=== PATIENT | male | born 1970 | race Caucasian/White ===

== ENCOUNTER 2016-03-04 06:31 | Inpatient (IN) ==
[2016-03-04] MEDS ORDERED: SODIUM CHLORIDE 0.9% 2,000 ML IV STA (07:03)
[2016-03-04] MEDS ORDERED: PANTOPRAZOLE 40 MG VIAL IV STA (07:03)
[2016-03-04] MEDS ORDERED: HYDROmorphone 2 MG/1 ML VIAL IV STA ×2 (07:04→08:03)
[2016-03-04] MEDS ORDERED: ONDANSETRON 4 MG/2 ML VIAL IV STA (07:04)
--- NOTE | 2016-03-04 07:05 | Emergency Department Note ---
Salvatore Croft Meredith, am scribing for, and in the presence of, Matthias Burt MD 07: 04. Carmel Croft James D, MD, personally performed the services described in this documentation, ascribed by Nicole Chase in my presence, and it is both accurate and complete . Arrival - Arrival Chief Complaint: Abdominal / Flank Pain Stated Complaint: blood in diarrhea m, back and abdomen pain ED Nursing Triage Note: C/O abd pain radiating into chest starting last night. Pt reports becoming diaphoretic and having diarrhea and noted bright red blood in stool. Mode of Arrival: Ambulatory Limitations: No Limitations Source: Patient, RN Notes Reviewed - History of Present Illness HPI Narrative: Pt is a 45 y/o white male reporting to the ED with c/o abdominal pain and lower back pain, onset last night at approximately 1900. He confirms associated diaphoresis and diarrhea with bright red blood. Pt states he had 4 episodes of diarrhea. Onset (ago): hour(s) Allergies/Adverse Reactions: Allergies Allergy/AdvReac Type Severity Reaction Status Date / Time No Known Allergies Allergy Verified 03/04/16 06:35 Home Medications: Home Medications Medication Instructions Recorded Confirmed Type Dextroamphetamine/Amphetamine 30 mg PO BID PRN 03/04/16 03/04/16 History [Adderall 30 mg Tablet] Morphine ER Tab [Ms Contin] 15 mg PO BID 03/04/16 03/04/16 History Nebivolol [Bystolic] 10 mg PO DAILY 03/04/16 03/04/16 History Oxycodone HCl/Acetaminophen 1 each PO TID 03/04/16 03/04/16 History [Percocet 10-325 mg Tablet] Review of System - Review of System 12 point system: reviewed and no additional remarkable complaints except as stated - Review of System Gastrointestinal: Present: as per HPI, abdominal pain, diarrhea (with bright red blood ) Musculoskeletal: Present: as per HPI, lower back pain Medical,Surgical,& Family Hx - Medical History Cardio: History of: Cardiovascular Problems (1st degree AV block) Musculoskeletal: History of: Musculoskeletal Problems (Chronic hip pain) - Social History Smoking Status: Never smoker Frequency of Alcohol Use: None Type of Drug Use: None Exam Physical Examination: GENERAL: This is a well-nourished, well-developed white male in no apparent distress. VITAL SIGNS: Temperature: 97.2, Pulse: 55, Respirations: 18, Blood pressure: 163 /93, O2 Saturation: 96 HEENT: Head is normocephalic and atraumatic. Pupils are equally round and reactive to light. Extraocular movement are intact. Oropharynx is benign with moist mucous membranes. NECK: Neck is soft and supple without tenderness. There are no masses. There is no lymphadenopathy. LUNGS: Lungs are clear to auscultation bilaterally. Chest rises symmetrically. There is no chest wall tenderness. CV: Heart is regular rate and rhythm without murmurs, rubs, or gallops. ABDOMEN: Abdomen is soft with tenderness in the left lower quadrant and suprapubic area. There are no abnormal masses palpated. There is no organomegaly. Bowel sounds are present and active. SKIN: Skin is clammy. No rash. EXTREMITIES: Patient has full range of motion without tenderness. There is no pedal edema. NEUROLOGIC: Awake, alert, and oriented x4. Cranial nerves II through XII are grossly intact. There are no motorsensory deficits. PSYCHIATRIC: Normal affect. Normal mood. Vital Signs: Vital Signs Temperature 97.2 F L 03/04/16 06:37 Pulse Rate 52 L 03/04/16 10:11 Respiratory Rate 18 03/04/16 09:48 Blood Pressure 134/104 03/04/16 09:19 O2 Sat by Pulse Oximetry 98 03/04/16 10:11 Course - Consultations Consultation #1: Discussed with hospitalist. Patient will be admitted to their service. Time: 10:13 Results - Labs CBC & BMP: 03/04/16 06:56 03/04/16 06:56 Lab Results: I have reviewed the patients labs Labs: Laboratory Tests 03/04/16 06:56 WBC 14.2 H RBC 6.81 H Hgb 16.7 Hct 52.6 H MCV 77.2 L MCH 25 L MCHC 31.7 L MPV 9.5 L Neut % (Auto) 83.5 H Lymph % (Auto) 10.3 L Neut # (Auto) 11.9 H Laboratory Tests 03/04/16 06:56 Urine pH 5.0 Ur Specific Pier[place] 1.034 Urine Protein 100 Urine Ketones 5 Urine Blood Small Urine Urobilinogen < 2.0 H Urine RBC 9 Urine WBC 4 Ur Squamous Epith Cells Occasional Urine Mucus Many - Diagnostic Findings Procedure: Abdominal x-ray: report reviewed by me (No evidence of acute process demonstrated. ) Disposition Clinical Impression: Hematochezia, Colitis Case discussed with: patient, patient's family Disposition: Still a Patient Condition: Stable Time of Disposition: 10:10
[2016-03-04] MEDS ORDERED: HYDROmorphone 2 MG/1 ML VIAL ONE (07:11)
[2016-03-04] MEDS ORDERED: PANTOPRAZOLE 40 MG VIAL IV ONE (07:11)
[2016-03-04] MEDS ORDERED: ONDANSETRON 4 MG/2 ML VIAL ONE (07:11)
[2016-03-04 07:14] LABS: Basophils % 0.2 % (0.0-0.8); Eosinophils # 0.1 10*3/uL (0.0-0.87); Eosinophils % 0.4 % (0.00-10.9); Hematocrit 52.6 VOL% (42.0-52.0); Hemoglobin 16.7 GM/DL (14.0-18.0); Immature Granulocytes % 0.3 %; Immature Granulocytes Absolute 0.04 #; Lymphocytes # 1.5 10*3/uL (1.4-4.0); Lymphocytes % 10.3 % (21.2-54.2); Mean Corpuscular HGB Conc 31.7 GM/DL (32-36); Mean Corpuscular Hemoglobin 25 PG (27-34); Mean Corpuscular Volume 77.2 FL (87-102); Mean Platelet Volume 9.5 FL (9.6-12.0); Monocytes # 0.8 10*3/uL (0.11-0.8); Monocytes % 5.3 % (1.7-12.7); Neutrophils # 11.9 10*3/uL (1.4-7.4); Neutrophils % 83.5 % (38.7-73.9); Platelet Count 245 10*3/uL (130-400); Red Blood Count 6.81 10*6/uL (3.8-5.5); Red Cell Distribution Width 15.9 % (9.3-17.3); White Blood Count 14.2 10*3/uL (4.5-13.71)
--- NOTE | 2016-03-04 07:24 | XRay Report ---
XR abdomen 2V Indication: Abdominal pain Comparison: 14 April 2010 Findings: No free fluid or free air seen. Multiple small flecks of ingested density overlie mostly the right side of the abdomen. Bowel gas pattern otherwise appears within normal limits. No abnormal calcifications are present. No other abnormality is identified. Impression: No evidence of acute process demonstrated PROCEDURE INTERPRETED AT [facility] DEPARTMENT OF RADIOLOGY Final Report Signed by: Dr. Esau Cota
[2016-03-04 07:27] LABS: Apearance,Urine Slightly Hazy (Clear); Bilirubin,Urine Negative (Negative); Blood, Urine Small mg/dL (Negative); Glucose,Urine (UA) Negative (Negative); Ketones,Urine 5 mg/dL (Negative); Mucus,Urine Many /LPF (Occasional); Nitrite,Urine Negative (Negative); Protein,Urine 100 MG/DL; RBC,Urine 9 /HPF (0-4); Squamous Epithelial Cell,Urine Occasional /HPF (0-10); Urine Specific Gravity 1.034 (1.001-1.035); Urine Urobilinogen < 2.0 EU/DL (0.2-1.0); WBC,Urine 4 /HPF (0-6)
[2016-03-04 07:29] LABS: Urine Color Dark Yellow (Yellow)
[2016-03-04 07:43] LABS: Albumin 4.2 G/DL (3.4-5.0); Bilirubin,Total 0.9 MG/DL (0.2-1.0); Calcium 9.3 MG/DL (8.5-10.1); Magnesium 2.3 MG/DL (1.8-2.4); Potassium 3.9 MMOL/L (3.5-5.1); Total Protein 8.1 G/DL (6.4-8.3)
--- NOTE | 2016-03-04 10:20 | CT Report ---
Exam: CT abdomen pelvis w con Date: 03/04/2016 7:51 AM Comparison: 01/28/2008 Indication: Left lower quadrant pain with blood in stool Technique: Sequential axial scans of the abdomen and pelvis were obtained following the ingestion of oral contrast and injection of 100 cc Omnipaque 350. Coronal and sagittal 2-D reconstructions were obtained. Total DLP: 1359.30 Findings: Atelectasis/scarring at the lung bases. Interval resolution of the large hepatic laceration. The liver is normal in size with no masses, dilated ducts or calcified gallstones. The spleen, pancreas adrenal glands, and have an unremarkable appearance. 8mm probable left midpole renal cyst with 2.7 mm left lower pole renal calculus. No ureteral calculi. The abdominal aorta is normal in size with no adjacent adenopathy. Small hiatal hernia with no dilatation of the small bowel. 28 mm fat-containing periumbilical hernia. Diffuse thickening of the wall of the colon from the distal transverse colon to the junction of the descending and sigmoid colon with minimal pericolonic soft tissue stranding. No evidence of focal diverticulitis, appendicitis, free air, or free fluid. The prostate measures 54 mm in diameter and indents the base of the urinary bladder. Small fat-containing bilateral inguinal hernias. Degenerative changes are noted with chronic appearing Schmorl's nodes. Old healed fractures of the right ilium/acetabulum with postoperative findings and interval right total hip replacement. Impression: Thickening of the wall of the colon from the distal transverse colon to the junction of the descending and sigmoid colon which can be seen with colitis, inflammatory bowel disease, etc. Small hiatal hernia with fat-containing periumbilical and bilateral inguinal hernias. Interval resolution of large hepatic laceration, 8mm probable left midpole renal cyst, and 2.7 mm left lower pole renal calculus. Old healed fractures of the right ilium/acetabulum with postoperative changes and interval right total hip replacement. PROCEDURE INTERPRETED AT [facility] DEPARTMENT OF RADIOLOGY Final Report Signed by: Dr. Lilian Robison
[2016-03-04] MEDS ORDERED: MORPHINE 2 MG/1 ML SYRINGE IV STA (10:34)
[2016-03-04] MEDS ORDERED: ONDANSETRON 4 MG/2 ML VIAL IV PRN (10:37)
[2016-03-04] MEDS ORDERED: MORPHINE 2 MG/1 ML SYRINGE IV PRN (10:37)
[2016-03-04] MEDS ORDERED: ACETAMINOPHEN 325 MG TABLET PO PRN (10:37)
[2016-03-04] MEDS ORDERED: ZALEPLON 5 MG CAPSULE PO PRN (10:37)
[2016-03-04] MEDS ORDERED: MORPHINE 2 MG/1 ML SYRINGE ONE (10:45)
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
[2016-03-04] MEDS ORDERED: NON-FORMULARY MEDICATION (Dextroamphetamine/Amphetamine [Adderall 30 Mg Tablet] 30 MG) PO PRN (12:05)
[2016-03-04] MEDS: SODIUM CHLORIDE 0.9% 1,000 ML IV SCH ×2 (12:23→20:09)
[2016-03-04] MEDS: metroNIDAZOLE INJ 500 MG in PREMIX 1 EACH IV SCH ×2 (12:23→23:22)
[2016-03-04] MEDS: CIPROFLOXACIN INJ 400 MG in PREMIX 1 EACH IV SCH (14:57)
[2016-03-04] MEDS: oxyCODONE/ACETAMINOPHEN 5-325 MG TABLET PO SCH ×2 (14:57→21:34)
[2016-03-04] MEDS: MORPHINE ER 15 MG TABLET PO SCH (21:35)
[2016-03-04 22:53] LABS: Hematocrit 44.1 VOL% (42.0-52.0); Hemoglobin 13.9 GM/DL (14.0-18.0)
[2016-03-05 06:01] LABS: Basophils % 0.3 % (0.0-0.8); Eosinophils # 0.1 10*3/uL (0.0-0.87); Eosinophils % 0.6 % (0.00-10.9); Hematocrit 45.1 VOL% (42.0-52.0); Hematocrit 45.7 VOL% (42.0-52.0); Hemoglobin 14.2 GM/DL (14.0-18.0); Hemoglobin 14.3 GM/DL (14.0-18.0); Immature Granulocytes % 0.3 %; Immature Granulocytes Absolute 0.04 #; Lymphocytes # 1.5 10*3/uL (1.4-4.0); Lymphocytes % 12.9 % (21.2-54.2); Mean Corpuscular HGB Conc 31.3 GM/DL (32-36); Mean Corpuscular Hemoglobin 25 PG (27-34); Mean Corpuscular Volume 78.4 FL (87-102); Mean Platelet Volume 9.8 FL (9.6-12.0); Monocytes # 0.6 10*3/uL (0.11-0.8); Monocytes % 5.4 % (1.7-12.7); Neutrophils # 9.5 10*3/uL (1.4-7.4); Neutrophils % 80.5 % (38.7-73.9); Platelet Count 188 10*3/uL (130-400); Red Blood Count 5.83 10*6/uL (3.8-5.5); Red Cell Distribution Width 15.2 % (9.3-17.3); White Blood Count 11.8 10*3/uL (4.5-13.71)
[2016-03-05 06:27] LABS: Albumin 3.3 G/DL (3.4-5.0); Bilirubin,Total 0.9 MG/DL (0.2-1.0); Calcium 8.3 MG/DL (8.5-10.1); Osmolality,Calculated 284.7 MOS/KG (273-304); Potassium 3.6 MMOL/L (3.5-5.1); Total Protein 6.1 G/DL (6.4-8.3)
[2016-03-05] MEDS: NEBIVOLOL 10 MG TABLET PO SCH (08:37)
[2016-03-05] MEDS: oxyCODONE/ACETAMINOPHEN 5-325 MG TABLET PO SCH ×3 (08:37→20:37)
[2016-03-05] MEDS: MORPHINE ER 15 MG TABLET PO SCH ×2 (08:37→20:38)
[2016-03-05] MEDS: metroNIDAZOLE INJ 500 MG in PREMIX 1 EACH IV SCH ×2 (10:40→23:03)
--- NOTE | 2016-03-05 11:28 | Gastrointestinal Progress Note ---
Assessment and Plan - Time spent with patient Time spent with patient: Greater than 30 minutes (1) Hematochezia Status: Acute Current Visit: Yes (2) Abnormal findings on diagnostic imaging of abdomen Status: Acute Current Visit: Yes (3) Other specified counseling Status: Acute Current Visit: Yes Exam (Progress Note) - Constitutional Vitals: Period Temp Pulse Resp BP Sys/Mack Pulse Ox Last 24 Hr 97.2 F-98.7 F 47-60 17-20 116-132/62-87 95-100 Results - Labs CBC & BMP: 03/05/16 05:31 03/05/16 05:31 Note Addendum: PLEASE NOTE -- automatic citation of patient information is unavoidable in this electronic note. I have made a reasonable effort to review the information cited , but it is not a part of my evaluation, impression, or recommendation unless specifically discussed in the dictated text that follows. As well, voice recognition software was used in the creation of this clinical note. Reasonable effort was made to identify and correct gross errors. Despite proofreading, errors in hybrid technologist may be present, including nonsense verbiage at times. If you encounter such an error, please contact me at [phone] for discussion and correction. -- Jasmin Chief complaint: hematochezia Subjective: the patient is a 45-year-old male seen for follow-up of hematochezia. The patient was admitted yesterday with complaint of sudden onset rectal bleeding. Evaluation revealed evidence of nonspecific colitis but no anemia. The patient is tolerating food at present. He had a bowel movement this morning which still contained blood, but subjectively less than previous. Medications: Tylenol, [place], ciprofloxacin, metronidazole, morphine, Bystolic, Adderall, Zofran, Percocet, sodium chloride infusion, [place] Review of Symptoms: 12 point review of symptoms was negative except as noted above Physical examination: Vital Signs: Current vital signs reviewed. General Appearance: well-appearing. Not acutely ill. Head: Normocephalic. Eyes: no scleral icterus. No scleral injection. No conjunctival pallor. Oral Cavity: Odor of breath was normal. No drooling was observed. Lips showed no abnormalities. Lungs: Respiration rhythm and depth was normal. Cardiovascular: Heart rate and rhythm were normal. Abdomen: abdomen was not distended. Abdominal auscultation revealed no abnormalities. Ascites was not discovered. Abdominal palpation revealed no tenderness and no hepatosplenomegaly. Musculoskeletal System: musculoskeletal system was grossly normal. Neurological: level of consciousness was normal. Speech was normal. No coordination/cerebellum abnormalities were noted. Skin: Gen. appearance was normal. Color and pigmentation were normal. No skin lesions were appreciated. Laboratory: what blood count 11.8, hemoglobin 14.3, hematocrit 45.7, platelets 188, sodium 145, BUN five, creatinine 0.8, ALT 29, AST 16, total bilirubin 0.9, albumin 3.3 Radiology: CT of the abdomen and pelvis from yesterday reveals thickening of the wall of the colon from distal transverse to the junction of the descending and sigmoid colon Impressions: 1. Hematochezia -- the differential diagnosis includes infectious/inflammatory enterocolitis, arteriovenous malformation, hemorrhoidal bleeding, colon polyps ( including cancer), and upper gastrointestinal bleeding. I recommend continued crystalloid resuscitation. I recommend serial hemoglobin and hematocrit monitoring with transfusion as indicated. I recommend intravenous proton pump inhibitor. Patient will need colonoscopy with timing dependent on clinical progress. If bleeding resumes, this will likely need to be done during this admission. If not, we could consider outpatient colonoscopy once he is adequately resuscitated and transfused. 2. Patient Counseling: Medical Management: Patient seen for greater than 30 minutes. Greater than 50% of this time was spent counseling regarding differential diagnosis, likely diagnosis,, diagnostic and therapeutic options, risks, benefits, and alternatives to procedures and medications, informed consent, and plan of care generally. Patient has expressed understanding and wishes to proceed. Recommendations: -- aggressive crystalloid resuscitation -- transfusion as indicated -- serial hemoglobin and hematocrit monitoring -- colonoscopy with timing dependent on clinical progress -- We will continue to follow with you.
[2016-03-05] MEDS: CIPROFLOXACIN INJ 400 MG in PREMIX 1 EACH IV SCH (12:09)
--- NOTE | 2016-03-05 15:24 | Hospitalist Progress Note ---
Assessment and Plan - Time spent with patient Time spent with patient: Greater than 30 minutes (1) Colitis Status: Acute Assessment and plan: WBC improved, symptoms improving with antibiotics. Continue current management. Current Visit: Yes (2) HTN (hypertension) Status: Acute Assessment and plan: Continue medications. Current Visit: Yes Hospitalist: Subjective Interval history: Reports a blood bowel movement, less blood than previous. Still with abdominal pain. No overnight events. Exam - Constitutional Vitals: Period Temp Pulse Resp BP Sys/Mack Pulse Ox Last 24 Hr 97.2 F-98.7 F 52-60 17-20 116-132/62-77 95-97 General appearance: no acute distress - Head Head exam: Present: normocephalic, atraumatic - Eye Eye exam: Present: EOMI Pupils: Present: TANJA - ENT ENT exam: Present: normal exam - Neck Neck exam: Present: normal inspection - Respiratory Respiratory exam: Present: clear to auscultation bilaterally. Absent: rhonchi, wheezes - Cardiovascular Cardiovascular exam: Present: regular rate and rhythm. Absent: gallop, rubs, systolic murmur - GI/Abdominal GI/Abdominal exam: Present: normal bowel sounds, tenderness, soft. Absent: distended, firm, guarding, rebound - Extremities Exam Extremities exam: Present: normal inspection. Absent: calf tenderness, edema Results - Labs CBC & BMP: 03/05/16 05:31 03/05/16 05:31 Lab Results: I have reviewed the past 24 hour labs Quality Measures - VTE Contraindication to Pharmacological VTE Prophylaxis: Active Bleeding
[2016-03-05] MEDS: SODIUM CHLORIDE 0.9% 1,000 ML IV SCH ×2 (15:26)
[2016-03-05 15:59] LABS: Hematocrit 46.4 VOL% (42.0-52.0); Hemoglobin 14.3 GM/DL (14.0-18.0)
[2016-03-06] MEDS: SODIUM CHLORIDE 0.9% 1,000 ML IV SCH ×3 (00:45→19:03)
[2016-03-06] MEDS: MORPHINE ER 15 MG TABLET PO SCH ×2 (08:13→20:39)
[2016-03-06] MEDS: oxyCODONE/ACETAMINOPHEN 5-325 MG TABLET PO SCH ×3 (08:13→20:38)
[2016-03-06] MEDS: NEBIVOLOL 10 MG TABLET PO SCH (08:13)
--- NOTE | 2016-03-06 10:28 | Gastrointestinal Progress Note ---
Assessment and Plan - Time spent with patient Time spent with patient: Less than 30 minutes (1) Hematochezia Status: Acute Current Visit: Yes (2) Abnormal findings on diagnostic imaging of abdomen Status: Acute Current Visit: Yes (3) Other specified counseling Status: Acute Current Visit: Yes Exam (Progress Note) - Constitutional Vitals: Period Temp Pulse Resp BP Sys/Mack Pulse Ox Last 24 Hr 97.4 F-97.9 F 58-80 18-24 119-139/56-77 95-100 Results - Labs CBC & BMP: 03/05/16 15:34 03/05/16 05:31 Note Addendum: PLEASE NOTE -- automatic citation of patient information is unavoidable in this electronic note. I have made a reasonable effort to review the information cited , but it is not a part of my evaluation, impression, or recommendation unless specifically discussed in the dictated text that follows. As well, voice recognition software was used in the creation of this clinical note. Reasonable effort was made to identify and correct gross errors. Despite proofreading, errors in processing tech may be present, including nonsense verbiage at times. If you encounter such an error, please contact me at for discussion and correction. -- Jasmin Chief complaint: hematochezia Subjective: the patient is a 45-year-old male seen for follow-up of hematochezia. The patient was admitted Monday with complaint of sudden onset rectal bleeding. Evaluation revealed evidence of nonspecific colitis but no anemia. The patient is tolerating food at present. His last bowel movement was recorded yesterday. Medications: Tylenol, [place], ciprofloxacin, metronidazole, morphine, Bystolic, Adderall, Zofran, Percocet, sodium chloride infusion, [place] Review of Symptoms: 12 point review of symptoms was negative except as noted above Physical examination: Vital Signs: Current vital signs reviewed. General Appearance: well-appearing. Not acutely ill. Head: Normocephalic. Eyes: no scleral icterus. No scleral injection. No conjunctival pallor. Oral Cavity: Odor of breath was normal. No drooling was observed. Lips showed no abnormalities. Lungs: Respiration rhythm and depth was normal. Cardiovascular: Heart rate and rhythm were normal. Abdomen: abdomen was not distended. Abdominal auscultation revealed no abnormalities. Ascites was not discovered. Abdominal palpation revealed no tenderness and no hepatosplenomegaly. Musculoskeletal System: musculoskeletal system was grossly normal. Neurological: level of consciousness was normal. Speech was normal. No coordination/cerebellum abnormalities were noted. Skin: Gen. appearance was normal. Color and pigmentation were normal. No skin lesions were appreciated. Laboratory: No new laboratories today Radiology: No new radiology today Impressions: 1. Hematochezia -- the differential diagnosis remains. I recommend continued hemoglobin and hematocrit monitoring with transfusion as indicated. I recommend intravenous proton pump inhibitor. Patient will need colonoscopy with timing dependent on clinical progress. If bleeding resumes, this will likely need to be done during this admission. If not, we could consider outpatient colonoscopy once he is adequately resuscitated and transfused. It would also be reasonable to start a regular diet. 2. Patient Counseling: Medical Management: Patient seen for greater than 30 minutes. Greater than 50% of this time was spent counseling regarding differential diagnosis, likely diagnosis,, diagnostic and therapeutic options, risks, benefits, and alternatives to procedures and medications, informed consent, and plan of care generally. Patient has expressed understanding and wishes to proceed. Recommendations: -- Continue to crystalloid resuscitation -- transfusion as indicated -- serial hemoglobin and hematocrit monitoring -- colonoscopy with timing dependent on clinical progress -- Regular diet as tolerated -- We will continue to follow with you.
--- NOTE | 2016-03-06 10:34 | Hospitalist Progress Note ---
Assessment and Plan - Time spent with patient Time spent with patient: Greater than 30 minutes (1) Colitis Status: Acute Assessment and plan: WBC improved, symptoms improving with antibiotics. Continue current management. Current Visit: Yes (2) HTN (hypertension) Status: Acute Assessment and plan: Continue medications. Current Visit: Yes Hospitalist: Subjective Interval history: No complaints, no overnight events. States he continues to have watery diarrhea , no blood however. Exam - Constitutional Vitals: Period Temp Pulse Resp BP Sys/Mack Pulse Ox Last 24 Hr 97.4 F-97.9 F 58-80 18-24 119-139/56-77 95-100 General appearance: no acute distress - Head Head exam: Present: normocephalic, atraumatic - Eye Eye exam: Present: EOMI Pupils: Present: TANJA - ENT ENT exam: Present: normal exam - Neck Neck exam: Present: normal inspection - Respiratory Respiratory exam: Present: clear to auscultation bilaterally. Absent: rhonchi, wheezes - Cardiovascular Cardiovascular exam: Present: regular rate and rhythm. Absent: gallop, rubs, systolic murmur - GI/Abdominal GI/Abdominal exam: Present: normal bowel sounds, soft. Absent: distended, firm , guarding, tenderness, rebound - Extremities Exam Extremities exam: Present: normal inspection. Absent: calf tenderness, edema Results - Labs CBC & BMP: 03/05/16 15:34 03/05/16 05:31 Lab Results: I have reviewed the past 24 hour labs Quality Measures - VTE Contraindication to Pharmacological VTE Prophylaxis: Active Bleeding
[2016-03-06] MEDS: metroNIDAZOLE INJ 500 MG in PREMIX 1 EACH IV SCH (10:36)
[2016-03-06] MEDS: CIPROFLOXACIN INJ 400 MG in PREMIX 1 EACH IV SCH (12:16)
[2016-03-07] MEDS: metroNIDAZOLE INJ 500 MG in PREMIX 1 EACH IV SCH ×2 (00:40→09:46)
[2016-03-07] MEDS: SODIUM CHLORIDE 0.9% 1,000 ML IV SCH (04:39)
[2016-03-07 06:14] LABS: Basophils % 0.4 % (0.0-0.8); Eosinophils # 0.3 10*3/uL (0.0-0.87); Eosinophils % 4.9 % (0.00-10.9); Hematocrit 41.9 VOL% (42.0-52.0); Immature Granulocytes % 0.2 %; Immature Granulocytes Absolute 0.01 #; Lymphocytes # 1.7 10*3/uL (1.4-4.0); Lymphocytes % 34.1 % (21.2-54.2); Mean Corpuscular Hemoglobin 24 PG (27-34); Mean Corpuscular Volume 77.9 FL (87-102); Mean Platelet Volume 10.2 FL (9.6-12.0); Monocytes # 0.3 10*3/uL (0.11-0.8); Monocytes % 6.7 % (1.7-12.7); Neutrophils # 2.7 10*3/uL (1.4-7.4); Neutrophils % 53.7 % (38.7-73.9); Platelet Count 191 10*3/uL (130-400); Red Blood Count 5.38 10*6/uL (3.8-5.5); White Blood Count 5.1 10*3/uL (4.5-13.71)
[2016-03-07 06:52] LABS: Calcium 8.3 MG/DL (8.5-10.1); Osmolality,Calculated 288.4 MOS/KG (273-304); Potassium 3.6 MMOL/L (3.5-5.1)
[2016-03-07] MEDS: NEBIVOLOL 10 MG TABLET PO SCH (08:40)
[2016-03-07] MEDS: oxyCODONE/ACETAMINOPHEN 5-325 MG TABLET PO SCH (08:40)
[2016-03-07] MEDS: MORPHINE ER 15 MG TABLET PO SCH (08:41)
[2016-03-07] MEDS: CIPROFLOXACIN INJ 400 MG in PREMIX 1 EACH IV SCH ×2 (08:42→11:07)
--- NOTE | 2016-03-07 11:03 | Discharge Summary ---
<Stella Kellogg - Last Filed: 03/07/16 10:53> Hospital Course - Hospital Course Hospital Course: Mr. Tariq was admitted with Colitis on 03/04/16. He was treated with IVF's, GI consult, clear liquids, cipro and flagyl. He has a hx of HTN. Stool cx's showed many WBC's, no enteric pathogens and no c diff. His H/H's were stable and he did not require blood transfusion. Dr. Karimi was consulted for hematochezia. Presentation was suggestive of ischemic colitis, but infectious colitis was also considered. His bleeding subsided and his symptoms improved with IV abx. He will be discharged home today on appropriate medications and follow up. - Time spent with patient Time with patient DS: Greater than 30 minutes (due to plan, doc and med rec.) Diagnosis - Discharge Diagnosis (1) Colitis Status: Acute (2) HTN (hypertension) Status: Acute (3) Hematochezia Status: Acute Discharge Plan - Discharge Data Disposition: Disch To Home/Self Care - Discharge Medications New Ciprofloxacin Tab [Cipro Tab] 500 mg PO BID #14 tablet metroNIDAZOLE TAB [Flagyl Cap/Tab] 500 mg PO TID #21 tablet Continue Oxycodone HCl/Acetaminophen [Percocet 10-325 mg Tablet] 1 each PO QID Morphine ER Tab [Ms Contin] 15 mg PO BID Nebivolol [Bystolic] 10 mg PO DAILY Dextroamphetamine/Amphetamine [Adderall 30 mg Tablet] 30 mg PO BID PRN PRN Reason: Restlessness - Follow Up or Referral Follow Up: Cyrus Karimi MD [Physician] - 2 Weeks - Forms/Instructions Exam - Constitutional Vitals: Period Temp Pulse Resp BP Sys/Mack Pulse Ox Last 24 Hr 97.1 F-98.1 F 68-94 17-20 117-149/57-83 96-99 Discharge Results Labs on day of discharge: Labs from last 24 hours 03/07/16 03/07/16 05:25 05:25 WBC 5.1 D RBC 5.38 Hgb 13.0 L Hct 41.9 L MCV 77.9 L MCH 24 L MCHC 31.0 L RDW 15.0 Plt Count 191 MPV 10.2 Neut % (Auto) 53.7 Lymph % (Auto) 34.1 [place] % (Auto) 6.7 Eos % (Auto) 4.9 Baso % (Auto) 0.4 Neut # (Auto) 2.7 Lymph # (Auto) 1.7 [place] # (Auto) 0.3 Eos # (Auto) 0.3 Baso # (Auto) 0.0 Immature Gran % 0.2 Nucleated RBC % 0.0 Immature Gran # 0.01 Nucleated RBCs # 0.00 Sodium 147 H Potassium 3.6 Chloride 112 H Carbon Dioxide 25 Anion Gap 13.6 BUN 4 L Creatinine 0.70 GFR Calculation 140 BUN/Creatinine Ratio 5.00 L Glucose 93 Calculated Osmolality 288.4 Calcium 8.3 L DS: Provider Date of admission: 03/04/16 10:20 Primary care physician: . No PCP Attending physician on admission: Lala Gomez MD Consults: 03/04/16 10:43 Consult to Physician [CONS] Routine Comment: colitis, bloody stools Consulting Provider: Cyrus Karimi 03/04/16 10:48 Consult to Pharmacy [CONS] Routine Reason for Pharmacy Consult: Adjust Meds Renal Funct Discharging clinician: Stella Kellogg NP Expected date of discharge: 03/07/16 <Lala Gomez - Last Filed: 03/07/16 11:14> Hospital Course - Hospital Course Hospital Course: I have seen and examined the patient and I agree with the discharge plan as outlined by KI Kellogg. Will discharge the patient home for completion of antibiotics and follow up with GI for colonoscopy. Diagnosis - Discharge Diagnosis (1) Colitis Status: Acute (2) HTN (hypertension) Status: Acute Discharge Plan - Discharge Data Condition at Discharge: Stable Discharge Diet: advance to your usual diet Activity: resume usual activities as tolerated Exam - Constitutional General appearance: normal weight, no acute distress - Head Head exam: Present: normal inspection, normocephalic, atraumatic - Eye Eye exam: Present: EOMI Pupils: Present: TANJA - ENT ENT exam: Present: normal exam - Neck Neck exam: Present: normal inspection - Respiratory Respiratory exam: Present: clear to auscultation bilaterally - Cardiovascular Cardiovascular exam: Present: regular rate and rhythm - GI/Abdominal GI/Abdominal exam: Present: normal bowel sounds - Extremities Exam Extremities exam: Present: normal inspection
[2016-03-07 12:50] VITALS: BP 147/86
== END 2016-03-07 12:40 | disposition home or self-care (01) | DRG 394 ==
LOC: N.ED 06:31 → N.EDINP 10:20 → N.2E 11:19
PROVIDERS: ADMIT Internal Medicine; ATTEND Internal Medicine

== ENCOUNTER 2018-10-23 12:56 | Inpatient (IN) ==
[2018-10-23] MEDS ORDERED: PROMETHAZINE 25 MG/1 ML VIAL IM PRN (13:20)
[2018-10-23] MEDS ORDERED: ONDANSETRON 4 MG/2 ML VIAL IV PRN (13:20)
[2018-10-23] MEDS ORDERED: ACETAMINOPHEN 325 MG TABLET PO PRN (13:20)
[2018-10-23] MEDS ORDERED: METHOCARBAMOL 750 MG TABLET PO PRN (13:23)
[2018-10-23] MEDS ORDERED: DICYCLOMINE 10 MG CAPSULE PO PRN (13:23)
[2018-10-23 14:03] LABS: Basophils % 0.2 % (0.0-0.8); Eosinophils # 0.1 10*3/uL (0.0-0.87); Eosinophils % 1.5 % (0.00-10.9); Hematocrit 53.4 VOL% (42.0-52.0); Hemoglobin 16.6 GM/DL (14.0-18.0); Immature Granulocytes % 0.4 %; Immature Granulocytes Absolute 0.03 #; Lymphocytes # 1.5 10*3/uL (1.4-4.0); Lymphocytes % 18.2 % (21.2-54.2); Mean Corpuscular HGB Conc 31.1 GM/DL (32-36); Mean Platelet Volume 9.4 FL (9.6-12.0); Monocytes % 5.7 % (1.7-12.7); Platelet Count 221 T/CUMM (130-400); Red Blood Count 6.59 MC/CUMM (3.8-5.5); Red Cell Distribution Width 16.7 % (9.3-17.3)
[2018-10-23 14:23] LABS: Albumin 3.8 G/DL (3.4-5.0); Bilirubin,Total 0.4 MG/DL (0.2-1.0); Calcium 9.3 MG/DL (8.5-10.1); Osmolality,Calculated 276.4 MOS/KG (273-304); Thyroid Stimulating Hormone 0.163 uIU/ml (0.358-3.74); Total Protein 7.8 G/DL (6.4-8.3)
[2018-10-23] MEDS ORDERED: THIAMINE INJ 100 MG, FOLIC ACID INJ 1 MG, MULTIVITAMIN INJ 10 ML in SODIUM CHLORIDE 0.9... IV ONE (15:00)
[2018-10-23] MEDS: BUPRENORPHINE SL TAB 2 MG TABLET SL SCH ×2 (15:19→22:12)
[2018-10-23] MEDS: chlordiazePOXIDE 25 MG CAPSULE PO SCH ×2 (15:19→21:03)
[2018-10-23] MEDS: PANTOPRAZOLE 40 MG TABLET PO SCH (15:20)
[2018-10-23 15:58] LABS: Free T4 (Free Thyroxine) 0.73 NG/DL (0.76-1.46)
[2018-10-23 16:30] LABS: Apearance,Urine CLEAR (Clear); Bilirubin,Urine Negative (Negative); Blood, Urine Negative (Negative); Glucose,Urine (UA) Negative (Negative); Ketones,Urine Negative (Negative); Nitrite,Urine Negative (Negative); Protein,Urine Negative; RBC,Urine <1 /HPF (0-4); Urine Color Colorless (Yellow); Urine Specific Gravity 1.002 (1.001-1.035); Urine Urobilinogen < 2.0 EU/DL (0.2-1.0)
[2018-10-23] MEDS: HydrOXYzine PAMOATE 25 MG CAPSULE PO PRN (18:05)
[2018-10-23 18:35] LABS: Barbiturates Screen,Urine Negative (Negative); Benzodiazepines Screen,Urine Negative (Negative); Cannabinoid Screen,Urine Negative (Negative); Opiate Screen,Urine Negative (Negative); Phencyclidine Screen,Urine Negative (Negative)
[2018-10-23] MEDS: cloNIDine 0.1 MG TABLET PO PRN (21:03)
[2018-10-23] MEDS: DULoxetine 20 MG CAPSULE PO SCH (21:03)
[2018-10-23] MEDS: ENOXAPARIN 40 MG/0.4 ML SYRINGE SUBCUT SCH (21:11)
[2018-10-23] MEDS ORDERED: MELATONIN 3 MG TABLET PO PRN (21:54)
[2018-10-24] MEDS: chlordiazePOXIDE 25 MG CAPSULE PO SCH ×4 (02:28→22:21)
[2018-10-24 05:41] LABS: Risk Ratio 4.93; VLDL CHOLESTEROL 40.2 MG/DL
[2018-10-24] MEDS: BUPRENORPHINE SL TAB 2 MG TABLET SL SCH ×3 (06:04→22:23)
[2018-10-24] MEDS: PANTOPRAZOLE 40 MG TABLET PO SCH (09:04)
[2018-10-24] MEDS: HydrOXYzine PAMOATE 25 MG CAPSULE PO PRN (13:12)
[2018-10-24] MEDS: rOPINIRole 1 MG TABLET PO PRN (16:03)
[2018-10-24] MEDS: DULoxetine 20 MG CAPSULE PO SCH (20:35)
[2018-10-24] MEDS: ENOXAPARIN 40 MG/0.4 ML SYRINGE SUBCUT SCH (20:36)
[2018-10-25] MEDS: HydrOXYzine PAMOATE 25 MG CAPSULE PO PRN ×3 (00:23→20:37)
[2018-10-25] MEDS: chlordiazePOXIDE 25 MG CAPSULE PO SCH ×3 (06:30→23:43)
[2018-10-25] MEDS: BUPRENORPHINE SL TAB 2 MG TABLET SL SCH ×2 (06:31→15:57)
[2018-10-25] MEDS: PANTOPRAZOLE 40 MG TABLET PO SCH (08:37)
[2018-10-25] MEDS: rOPINIRole 1 MG TABLET PO PRN (12:04)
[2018-10-25] MEDS ORDERED: DULoxetine 20 MG CAPSULE PO SCH (12:46)
[2018-10-25] MEDS: ENOXAPARIN 40 MG/0.4 ML SYRINGE SUBCUT SCH (20:37)
[2018-10-25] MEDS: cloNIDine 0.1 MG TABLET PO PRN (20:37)
[2018-10-26] MEDS: BUPRENORPHINE SL TAB 2 MG TABLET SL SCH (04:18)
[2018-10-26] MEDS: chlordiazePOXIDE 25 MG CAPSULE PO SCH (06:05)
[2018-10-26] MEDS: PANTOPRAZOLE 40 MG TABLET PO SCH ×2 (07:53→08:00)
[2018-10-26] MEDS: cloNIDine 0.1 MG TABLET PO PRN (07:53)
[2018-10-26 11:55] VITALS: BP 128/76
== END 2018-10-26 12:49 | disposition home or self-care (01) | DRG 897 ==
LOC: N.4E 13:31
PROVIDERS: ADMIT Internal Medicine; ATTEND Internal Medicine

== ENCOUNTER 2022-02-17 06:45 | Inpatient (IN) ==
[2022-02-17] MEDS ORDERED: ONDANSETRON 4 MG/2 ML VIAL IV STA (07:00)
[2022-02-17] MEDS ORDERED: SODIUM CHLORIDE 0.9% 1,000 ML IV STA ×2 (07:00→08:39)
[2022-02-17 07:10] LABS: Basophils % 0.4 % (0.0-0.8); Eosinophils # 0.1 10*3/uL (0.0-0.87); Eosinophils % 2.1 % (0.00-10.9); Hematocrit 46.3 VOL% (42.0-52.0); Immature Granulocytes % 0.6 %; Immature Granulocytes Absolute 0.03 #; Lymphocytes # 1.7 10*3/uL (1.4-4.0); Lymphocytes % 32.4 % (21.2-54.2); Mean Corpuscular HGB Conc 32.4 GM/DL (32-36); Mean Corpuscular Volume 82.2 FL (87-102); Mean Platelet Volume 9.9 FL (9.6-12.0); Monocytes # 0.5 10*3/uL (0.11-0.8); Monocytes % 8.8 % (1.7-12.7); Neutrophils % 55.7 % (38.7-73.9); Platelet Count 157 T/CUMM (130-400); Red Blood Count 5.63 MC/CUMM (3.8-5.5); Red Cell Distribution Width 14.6 % (9.3-17.3); White Blood Count 5.3 T/CUMM (4-12)
[2022-02-17 07:16] LABS: INR 1.1; PT Patient Result 11.9 SECS (10.1-12.1)
[2022-02-17] MEDS: NALOXONE 0.4 MG/ML VIAL IV PRN ×2 (07:16→10:38)
[2022-02-17 07:28] LABS: Alanine Aminotransferase 45 U/L (16-61); Albumin 3.4 G/DL (3.4-5.0); Alkaline Phosphatase 64 U/L (45-117); Aspartate Amino Transferase 40 U/L (0-37); Bilirubin,Total < 0.39 MG/DL (0.20-1.00); Blood Urea Nitrogen 14 MG/DL (7-18); Calcium 8.4 MG/DL (8.5-10.1); Carbon Dioxide 26 MMOL/L (21-32); Chloride 107 MMOL/L (98-107); Glucose 118 MG/DL (74-106); Osmolality,Calculated 280.4 MOS/KG (273-304); Sodium 140 MMOL/L (136-145); Total Protein 6.9 G/DL (6.4-8.2)
[2022-02-17 07:37] LABS: Mucus,Urine Occasional /LPF (Occasional); RBC,Urine <1 /HPF (0-4); Urine Appearance Clear (Clear); Urine Color Yellow (Yellow)
[2022-02-17 07:38] LABS: Bilirubin,Urine Negative (Negative); Blood, Urine Negative (Negative); Glucose,Urine (UA) Negative (Negative); Ketones,Urine Negative (Negative); Nitrite,Urine Negative (Negative); Protein,Urine Negative (Negative); Urine Specific Gravity < 1.005 (1.001-1.035); Urine Urobilinogen 0.2 eU/dL (<2.0)
[2022-02-17 07:54] LABS: Barbiturates Screen,Urine Negative (Negative); Benzodiazepines Screen,Urine Negative (Negative); Cannabinoid Screen,Urine Negative (Negative); Opiate Screen,Urine Negative (Negative); Phencyclidine Screen,Urine Negative (Negative)
[2022-02-17] MEDS ORDERED: THIAMINE INJ 100 MG, FOLIC ACID INJ 1 MG, MAGNESIUM SULF INJ 2 GM, MULTIVITAMIN INJ 10 ... IV ONE (07:59)
[2022-02-17] MEDS ORDERED: SODIUM CHLORIDE 0.9% IV SCH (08:00)
[2022-02-17] MEDS ORDERED: NALOXONE IV SCH (08:00)
[2022-02-17] MEDS ORDERED: ALBUTEROL 2.5 MG/3 ML NEB RESP TX PRN (08:36)
[2022-02-17] MEDS ORDERED: ONDANSETRON 4 MG/2 ML VIAL IV PRN (08:37)
[2022-02-17] MEDS ORDERED: THIAMINE 200 MG/2 ML VIAL IV SCH (09:00)
[2022-02-17 09:11] VITALS: BP 108/74
[2022-02-17] MEDS: ENOXAPARIN 40 MG/0.4 ML SYRINGE SUBCUT SCH (09:11)
[2022-02-17 09:23] LABS: Arterial Base Excess iSTAT -4 MMOL/L (-2.5-2.5); Arterial Bicarbonate iSTAT 22.9 MMOL/L (20-26); Arterial O2 Saturation iSTAT 96 % (95-100); Arterial PCO2 iSTAT 46 MM HG (35-48); Arterial PO2 iSTAT 93 MM HG (80-95); Arterial Total CO2 iSTAT 24 MMO/L (23-27); Arterial pH iSTAT 7.307 (7.35-7.45)
[2022-02-17] MEDS: LACTATED RINGERS 1,000 ML IV SCH ×2 (10:26→17:20)
[2022-02-17] MEDS ORDERED: MELATONIN 3 MG TABLET PO PRN (20:36)
[2022-02-18] MEDS: LACTATED RINGERS 1,000 ML IV SCH (02:05)
[2022-02-18 06:14] LABS: Basophils % 0.5 % (0.0-0.8); Eosinophils # 0.2 10*3/uL (0.0-0.87); Eosinophils % 3.9 % (0.00-10.9); Hematocrit 44.1 VOL% (42.0-52.0); Immature Granulocytes % 0.5 %; Immature Granulocytes Absolute 0.02 #; Lymphocytes # 1.4 10*3/uL (1.4-4.0); Lymphocytes % 31.1 % (21.2-54.2); Mean Corpuscular HGB Conc 31.7 GM/DL (32-36); Mean Corpuscular Volume 83.8 FL (87-102); Mean Platelet Volume 9.7 FL (9.6-12.0); Monocytes # 0.4 10*3/uL (0.11-0.8); Monocytes % 9.8 % (1.7-12.7); Neutrophils % 54.2 % (38.7-73.9); Platelet Count 139 T/CUMM (130-400); Red Blood Count 5.26 MC/CUMM (3.8-5.5); Red Cell Distribution Width 15.1 % (9.3-17.3); White Blood Count 4.4 T/CUMM (4-12)
[2022-02-18 06:39] LABS: Albumin 2.8 G/DL (3.4-5.0); Bilirubin,Total 0.5 MG/DL (0.20-1.00); Calcium 8.1 MG/DL (8.5-10.1); Osmolality,Calculated 272.7 MOS/KG (273-304); Potassium 4.1 MMOL/L (3.5-5.1); Total Protein 5.9 G/DL (6.4-8.2)
[2022-02-18] MEDS: ENOXAPARIN 40 MG/0.4 ML SYRINGE SUBCUT SCH (08:35)
[2022-02-18] MEDS ORDERED: THIAMINE INJ 500 MG in SODIUM CHLORIDE 0.9% 100 ML IV SCH (09:00)
== END 2022-02-18 11:24 | disposition home or self-care (01) | DRG 917 ==
LOC: N.ED 06:45 → SUATTDRO 08:36 → N.EDINP 08:36 → N.ICU 09:20
PROVIDERS: ADMIT Family Medicine; ATTEND Family Medicine